=== PATIENT | female | born 1960 | race Caucasian/White ===

== ENCOUNTER 2024-02-27 10:16 | Outpatient (OUT) | payer OTHER, SELFPAY ==
[2024-02-27 11:26] LABS: Microalbumin Urine Random 2.6 mg/dL (<=30.0)
== END 2024-02-27 10:17 | disposition home or self-care (01) ==
LOC: LAB 10:16
PROVIDERS: PCP Family Medicine; Visit Provider Family Medicine
DX: E11.65 Type 2 diabetes mellitus with hyperglycemia (principal)
CPT/HCPCS: 82043